=== PATIENT | male | born 1935 | race Caucasian/White ===

== ENCOUNTER 2019-04-17 16:58 | Inpatient (IN) ==
[2019-04-17 18:06] LABS: BASOPHILS # (AUTO) 0.1 X10^3/uL (0.0-0.1); BASOPHILS % (AUTO) 0.9 % (0.2-1.0); EOSINOPHILS # (AUTO) 0.3 x10^3/uL (0.0-0.2); EOSINOPHILS % (AUTO) 3.1 % (0.9-2.9); HEMATOCRIT 40.7 % (42.0-54.0); HEMOGLOBIN 13.4 g/dL (13.5-18.0); LYMPHOCYTES # (AUTO) 2.4 X10^3/uL (1.3-2.9); LYMPHOCYTES % (AUTO) 26.4 % (21.0-51.0); MEAN CORPUSCULAR HEMOGLOBIN 28.6 pg (27.0-34.0); MEAN CORPUSCULAR HGB CONC 33.1 g/dL (33.0-35.0); MEAN CORPUSCULAR VOLUME 86.5 fL (80.0-100.0); MEAN PLATELET VOLUME 9.5 fL (7.4-11.0); MONOCYTES % (AUTO) 10.8 % (0.0-13.0); NEUTROPHILS # (AUTO) 5.3 x10^3/uL (2.2-4.8); NEUTROPHILS % (AUTO) 58.8 % (42.0-75.0); PLATELET COUNT 248 X10^3/uL (150.0-450.0); RED CELL DISTRIBUTION WIDTH 15.3 % (11.6-16.5)
[2019-04-17 18:13] VITALS: BMI 25.9
[2019-04-17 18:14] LABS: ALANINE AMINOTRANSFERASE 33 Units/L (12-78); ALBUMIN 3.3 g/dL (3.4-5.0); ALKALINE PHOSPHATASE 125 Units/L (46-116); ASPARTATE AMINO TRANSFERASE 21 Units/L (15-37); BLOOD UREA NITROGEN 23 mg/dL (7-18); CALCIUM 9.7 mg/dL (8.5-10.1); CARBON DIOXIDE 27.6 mmol/L (21-32); CHLORIDE 106 mmol/L (98-107); COR CA(FOR HYPOALB) 10.3 mg/dL (8.5-10.1); COR NA(FOR HYPERGLY) 146 mmol/L (136-145); CREATININE 1.16 mg/dL (0.70-1.30); SODIUM 143 mmol/L (136-145); eGFR NON BLACK RACES > 60 (>60)
--- NOTE | 2019-04-17 18:14 | RAD ---
Chest, 1 view Indication: Pneumonia Comparison: None Findings: Cardiac silhouette size is unremarkable. There is left subclavian approach cardiac device and leads. Prior median sternotomy is noted. There is blunting of the left costophrenic sulcus. No dense infiltrates or pneumothorax. Impression: Blunting of the left costophrenic sulcus, compatible with pleural thickening or small effusion. Consider two-view chest. Reported By:
[2019-04-17] MEDS ORDERED: NS 1/2 1000 ML IV 1,000 ML ONE (18:44)
[2019-04-17] MEDS: LEVAQUIN PREMIX IV 500 MG 500 MG/100 ML BAG IV SCH (18:47)
[2019-04-17] MEDS: FORTAZ or TAZICEF VIAL INJ IVP SCH ×2 (18:47→23:30)
[2019-04-17] MEDS: VSL#3 PO SCH (18:47)
[2019-04-17] MEDS: NS 1/2 1000 ML IV 1,000 ML IV SCH (18:47)
--- NOTE | 2019-04-17 19:08 | DR.H&P ---
H&P - History & Physical for Day of: H&P Date: 04/17/19 - Chief Complaint Chief Complaint: C/C/C, FEVER - History of Present Illness History of Present Illness: IS A 84 YEAR OLD PATIENT OF OURS. HE PRESENTED TO THE HOSPITAL A DIRECT ADMISSION DUE TO COMPLAINTS OF PERSISTENT, PRODUCTIVE COUGH, CONGESTION, SHORTNESS OF BREATH, AND FEVER FOR THE PAST MONTH. HE REPORTS A PROGRESSIVE WORSENING OF SYMPTOMS OVER THE PAST WEEK DESPITE COMPLIANCE WITH INHALERS AND BREATHING TREATMENTS AT HOME. ON ARRIVAL TO THE HOSPITAL, VITALS WERE: 98.3-67-20-99%-157/75. LABS WERE OBTAINED. ABNORMAL LAB VALUES INCLUDE THE FOLLOWING: HGB 13.4, HCT 40.7, BUN 23, GLUCOSE 223, ALK PHOS 125, ALBUMIN 3.3, GLOBULIN 4.7. BLOOD AND SPUTUM CULTURES WERE OBTAINED. A CHEST XRAY WAS TAKEN AND REVEALED:. Blunting of the left costophrenic sulcus, compati ble with pleural thickening or small effusion. HE WAS STARTED ON 1/2NS AT 75ML/HR, LEVAQUIN 500MG IV DAILY, FORTAZ 1G IV Q8H, AND RESPIRATORY TREATMENTS FOR TREATMENT OF BRONCHOPNEUMONIA. OTHERWISE, WE PLAN TO FOLLOW UP WITH AM LABS AND CHEST XRAY AND CONTINUE TO MONITOR. - Past Medical History Past Medical History: COPD, Diabetes, GERD, Hypothyroidism - Past Surgical History Additional Surgical History: HERNIA REPAIR - Social History Does patient currently use any type of tobacco product: No (Quit in 1982) Have you used tobacco products in the last 12 months: No Type of Tobacco Use: None Does any household member use tobacco: No Alcohol Use: None Drug Use: None Prescription drug monitoring program results: PDMP reviewed and no concerns identified - Medications Home Medications: No Known Drug Allergies Allergy (Verified 04/17/19 17:22) CONTINUE taking the following medications albuterol sulfate [ProAir HFA] 2 puff INHALATION Q4-6H PRN 04/17/19 [History] amlodipine 5 mg PO BID 04/17/19 [History] apixaban [Eliquis] 5 mg PO BID 04/17/19 [History] carvedilol 3.125 mg PO BID 04/17/19 [History] famotidine 20 mg PO BID 04/17/19 [History] zkemyvomtht-[id number]-iurbfqqc [Trelegy Ellipta] 1 puff INHALATION DAILY 04/17/19 [History] furosemide 20 mg PO BID 04/17/19 [History] insulin glargine [Lantus Solostar U-100 Insulin] 35 units SUBCUT HS 04/17/19 [History] insulin lispro [Humalog KwikPen Insulin] See Rx Instructions .ROUTE .COMPLEX 04/17/19 [History] levothyroxine 50 mcg PO DAILY 04/17/19 [History] losartan 100 mg PO DAILY 04/17/19 [History] pregabalin [Lyrica] 50 mg PO BID 04/17/19 [History] roflumilast [Daliresp] 500 mg PO DAILY 04/17/19 [History] simvastatin 40 mg PO QHS 04/17/19 [History] - Review of Systems Constitutional: See HPI, Fever, Chills, Weakness Eyes: No Symptoms Reported ENT: No Symptoms Reported Respiratory: See HPI, Cough, Shortness of Breath, SOB with Excertion, Sputum, Wheezing Cardiovascular: No Symptoms Reported Gastrointestinal: No Symptoms Reported Genitourinary: No Symptoms Reported Musculoskeletal: No Symptoms Reported Skin: No Symptoms Reported Neurological: Weakness - Physical Exam Vital Signs: Temperature 98.3 F Pulse Rate [Left] 67 Pulse Rate 75 Respiratory Rate 20 Blood Pressure [Left Arm] 157/75 O2 Sat by Pulse Oximetry 96 Oriented: Normal Eyes: Normal Ear: Normal Nose: Normal Throat: Normal Respiratory: Wheezes Throughout Cardiovascular: Normal. negative: S3, S4, Murmur : Normal Auscultation: Bowel Sounds: Normal Palpation: Normal Tenderness: Normal Skin: Normal Musculoskeletal: Normal Psychiatric: Normal Mood Description: Calm Affect: Normal Speech Pattern: Clear - Assessment/Plan (1) Bronchopneumonia Status: Acute Plan: PNEUMONIA PROTOCOL WITH IV FORTAZ, IV LEVAQUIN, RESPIRATORY TREATMENTS, SUPPLEMENTAL OXYGEN, CONTINUE TO MONITOR - Allergies Allergies/Adverse Reactions: Allergies Allergy/AdvReac Type Severity Reaction Status Date / Time No Known Drug Allergies Allergy Verified 04/17/19 17:22
[2019-04-17] MEDS ORDERED: LASIX ONE (21:12)
[2019-04-17] MEDS: ROBITUSSIN DM PO SCH (21:18)
[2019-04-17] MEDS: LASIX PO SCH (21:19)
[2019-04-17] MEDS: HumuLIN R SUBCUT PRN (21:19)
[2019-04-17] MEDS: TUSSIONEX PENNKINETIC SUSP PO PRN (21:21)
[2019-04-17] MEDS: DUONEB 0.5 MG/3 MG NEB SCH (21:24)
[2019-04-18] MEDS: DUONEB 0.5 MG/3 MG NEB SCH ×6 (00:58→20:13)
[2019-04-18] MEDS: FORTAZ or TAZICEF VIAL INJ IVP SCH ×3 (05:25→21:40)
[2019-04-18 05:30] LABS: BASOPHILS # (AUTO) 0.1 X10^3/uL (0.0-0.1); EOSINOPHILS # (AUTO) 0.3 x10^3/uL (0.0-0.2); EOSINOPHILS % (AUTO) 3.7 % (0.9-2.9); HEMATOCRIT 36.8 % (42.0-54.0); HEMOGLOBIN 12.1 g/dL (13.5-18.0); LYMPHOCYTES # (AUTO) 2.1 X10^3/uL (1.3-2.9); MEAN CORPUSCULAR HEMOGLOBIN 28.3 pg (27.0-34.0); MEAN CORPUSCULAR HGB CONC 32.9 g/dL (33.0-35.0); MEAN CORPUSCULAR VOLUME 86.1 fL (80.0-100.0); MEAN PLATELET VOLUME 8.9 fL (7.4-11.0); MONOCYTES % (AUTO) 13.5 % (0.0-13.0); NEUTROPHILS # (AUTO) 3.7 x10^3/uL (2.2-4.8); NEUTROPHILS % (AUTO) 51.8 % (42.0-75.0); PLATELET COUNT 219 X10^3/uL (150.0-450.0); RED BLOOD COUNT 4.28 X10^6/uL (4.7-6.0); RED CELL DISTRIBUTION WIDTH 15.1 % (11.6-16.5); WHITE BLOOD COUNT 7.1 X10^3/uL (3.6-10.0)
[2019-04-18 05:36] LABS: ALANINE AMINOTRANSFERASE 26 Units/L (12-78); ALBUMIN 2.8 g/dL (3.4-5.0); ALKALINE PHOSPHATASE 108 Units/L (46-116); ASPARTATE AMINO TRANSFERASE 18 Units/L (15-37); BLOOD UREA NITROGEN 24 mg/dL (7-18); CALCIUM 9.3 mg/dL (8.5-10.1); CARBON DIOXIDE 30.5 mmol/L (21-32); CHLORIDE 109 mmol/L (98-107); COR CA(FOR HYPOALB) 10.3 mg/dL (8.5-10.1); COR NA(FOR HYPERGLY) 147 mmol/L (136-145); CREATININE 1.15 mg/dL (0.70-1.30); SODIUM 146 mmol/L (136-145); TOTAL PROTEIN 6.9 g/dL (6.4-8.2); eGFR NON BLACK RACES > 60 (>60)
[2019-04-18] MEDS: HumuLIN R SUBCUT PRN ×4 (05:48→22:22)
[2019-04-18] MEDS: LASIX PO SCH ×2 (06:01→17:39)
--- NOTE | 2019-04-18 06:22 | RAD ---
Chest, two views Indication: Bronchopneumonia Comparison: 04/17/2019 Findings: The left costophrenic angle is excluded from the cadop-sl-llli on the PA projection. The heart is normal in size. Prior median sternotomy and left-sided pacemaker noted. Lungs are hyperinflated with flattening of the hemidiaphragms and coarsened interstitial markings, suggestive for COPD. No obvious focal infiltrate or significant effusion is identified. No pneumothorax. Impression: Findings suggestive for COPD without acute cardiopulmonary abnormality. Reported By:
[2019-04-18] MEDS ORDERED: NS 1/2 1000 ML IV 1,000 ML ONE (08:00)
[2019-04-18] MEDS ORDERED: PHARMACY CONSULT - DOSE _____ XX SCH (08:00)
[2019-04-18] MEDS: NS 1/2 1000 ML IV 1,000 ML IV SCH (08:59)
[2019-04-18] MEDS: VSL#3 PO SCH (08:59)
[2019-04-18] MEDS: LEVAQUIN PREMIX IV 500 MG 500 MG/100 ML BAG IV SCH (08:59)
[2019-04-18] MEDS: ROBITUSSIN DM PO SCH ×4 (08:59→21:37)
[2019-04-18] MEDS ORDERED: PATIENT'S HOME MEDICATION (Fluticasone-Umeclidin-Vilanter [Fluticasone-Umeclidin-Vilanter] IN SCH (10:45)
[2019-04-18] MEDS ORDERED: LASIX PO SCH (11:00)
[2019-04-18] MEDS ORDERED: PROCALAMINE 3 % 1,000 ML IV SCH (11:00)
[2019-04-18] MEDS: COREG TAB 3.125 MG PO SCH ×2 (11:17→21:39)
[2019-04-18] MEDS: ELIQUIS PO SCH ×2 (11:17→21:39)
[2019-04-18] MEDS: DALIRESP PO SCH (11:17)
[2019-04-18] MEDS: COZAAR PO SCH (11:17)
[2019-04-18] MEDS: PEPCID TAB 20 MG PO SCH ×2 (11:18→21:39)
[2019-04-18] MEDS: SYNTHROID 50 mcg TAB PO SCH (11:18)
[2019-04-18] MEDS: LYRICA CAP 50 MG PO SCH ×2 (11:18→21:37)
[2019-04-18] MEDS: NORVASC TAB 5 MG PO SCH ×2 (11:18→21:38)
[2019-04-18] MEDS: ALBUMIN HUMAN 25%- 100 ML 100 ML IV SCH (11:26)
--- NOTE | 2019-04-18 20:09 | PCM.PROG ---
Progress Note - Progress Note for Day of Date of Exam: 04/18/19 - Subjective Subjective: WAS ADMITTED FOR TREATMENT OF BRONCHOPNEUMONIA. TODAY, HE IS ALERT AND ORIENTED, LYING IN BED ON MORNING ROUNDS. HE CONTINUES WITH COMPLAINTS OF A PERSISTENT COUGH, SHORTNESS OF BREATH, AND WEAKNESS. HE STATES THAT COUGH HAS BEEN PRODUCTIVE THROUGHOUT THE NIGHT. ON EXAMINATION, HEART IS REGULAR IN RATE AND RHYTHM. BILATERAL LUNGS ARE NOTED WITH SCATTERED WHEEZING. ABDOMEN IS ROUND, SOFT, AND NON-TENDER WITH NORMAL BOWEL SOUNDS NOTED IN ALL QUADRANTS. HIS VITALS THIS MORNING ARE: 97.7-75-20-99%-165/70. LABS WERE OBTAINED. ABNORMAL LAB VALUES INCLUDE THE FOLLOWING: RBC 4.28, HGB 12.1, HCT 36.8, SODIUM 146, CHLORIDE 109, BUN 24, GLUCOSE 156, ALBUMIN 2.8. BLOOD CULTURES AND SPUTUM CULTURES ARE PENDING. A CHEST XRAY WAS OBTAINED TODAY AND REVEALED: Findings suggestive for COPD without acute cardiopulmonary abnormality. HE IS CURRENTLY RECEIVING IV FLUIDS, IV ANTIBIOTICS, AND RESPIRATORY TREATMENTS. WE WILL CONTINUE WITH CURRENT PLAN OF CARE TODAY. WE WILL ADD PROCAL AND ALBUMIN 25% IV DAILY. WE WILL RESUME HIS LANTUS, BUT WILL INCREASE IT TO 50 UNITS SC HS. OTHERWISE, WE WILL FOLLOW UP WITH AM LABS AND CONTINUE TO [facility]. - Past Medical Family Social History Past Med/Fam/Surg Hx: No changes since H&P Allergies: Allergies No Known Drug Allergies Allergy (Verified 04/17/19 17:22) - Review of Systems ROS: No change since H&P - Vital Signs and I&O's Vital Signs: Temperature 98.5 F Pulse Rate [Left] 64 Pulse Rate 70 Respiratory Rate 20 Blood Pressure [Left Arm] 184/77 Blood Pressure 165/72 O2 Sat by Pulse Oximetry 97 Intake and Output: Intake & Output 04/16/19 04/17/19 04/18/19 04/19/19 11:59 11:59 11:59 11:59 Intake Total 1685 / 1685 1487 / 1487 Output Total 950 / 950 1200 / 1200 Balance 735 / 735 287 / 287 - Physical Exam Oriented: Normal Eyes: Normal Ear: Normal Nose: Normal Throat: Normal Respiratory: Generalized, Diminished, Wheezes Cardiovascular: Normal. negative: S3, S4, Murmur : Normal Auscultation: Bowel Sounds: Normal Palpation: Normal Tenderness: Normal Skin: Normal Musculoskeletal: Normal Psychiatric: Normal Mood Description: Calm Affect: Normal Speech Pattern: Clear, Appropriate - Laboratory and Diagnostics Result Diagrams: 04/18/19 04:39 04/18/19 04:39 Labs: 04/17/19 18:00 Sputum - Expectorated Sputum Sputum Culture - Preliminary 04/17/19 18:00 Sputum - Expectorated Sputum - Final Laboratory WBC 7.1 X10^3/uL (3.6-10.0) 04/18/19 04:39 RBC 4.28 X10^6/uL (4.7-6.0) L 04/18/19 04:39 Hgb 12.1 g/dL (13.5-18.0) L 04/18/19 04:39 Hct 36.8 % (42.0-54.0) L 04/18/19 04:39 MCV 86.1 fL (80.0-100.0) 04/18/19 04:39 MCH 28.3 pg (27.0-34.0) 04/18/19 04:39 MCHC 32.9 g/dL (33.0-35.0) L 04/18/19 04:39 RDW 15.1 % (11.6-16.5) 04/18/19 04:39 Plt Count 219 X10^3/uL (150.0-450.0) 04/18/19 04:39 MPV 8.9 fL (7.4-11.0) 04/18/19 04:39 Neut % (Auto) 51.8 % (42.0-75.0) 04/18/19 04:39 Lymph % (Auto) 30.0 % (21.0-51.0) 04/18/19 04:39 [place] % (Auto) 13.5 % (0.0-13.0) H 04/18/19 04:39 Eos % (Auto) 3.7 % (0.9-2.9) H 04/18/19 04:39 Baso % (Auto) 1.0 % (0.2-1.0) 04/18/19 04:39 Neut # (Auto) 3.7 x10^3/uL (2.2-4.8) 04/18/19 04:39 Lymph # (Auto) 2.1 X10^3/uL (1.3-2.9) 04/18/19 04:39 [place] # (Auto) 1.0 x10^3/uL (0.3-0.8) H 04/18/19 04:39 Eos # (Auto) 0.3 x10^3/uL (0.0-0.2) H 04/18/19 04:39 Baso # (Auto) 0.1 X10^3/uL (0.0-0.1) 04/18/19 04:39 Absolute Nucleated RBC 0.0 /100WBC 04/18/19 04:39 Sodium 146 mmol/L (136-145) H 04/18/19 04:39 Corrected Sodium 147 mmol/L (136-145) H 04/18/19 04:39 Potassium 4.6 mmol/L (3.5-5.1) 04/18/19 04:39 Chloride 109 mmol/L (98-107) H 04/18/19 04:39 Carbon Dioxide 30.5 mmol/L (21-32) 04/18/19 04:39 BUN 24 mg/dL (7-18) H 04/18/19 04:39 Creatinine 1.15 mg/dL (0.70-1.30) 04/18/19 04:39 Est GFR (MDRD) Af Amer > 60 (>60) 04/18/19 04:39 Est GFR (MDRD) Non-Af > 60 (>60) 04/18/19 04:39 Glucose 156 mg/dL (65-99) H 04/18/19 04:39 POC Glucose (mg/dL) 347 mg/dL (65-99) H 04/17/19 20:51 Calcium 9.3 mg/dL (8.5-10.1) 04/18/19 04:39 Corrected Calcium 10.3 mg/dL (8.5-10.1) H 04/18/19 04:39 Total Bilirubin 0.30 mg/dL (0.2-1.0) 04/18/19 04:39 AST 18 Units/L (15-37) 04/18/19 04:39 ALT 26 Units/L (12-78) 04/18/19 04:39 Alkaline Phosphatase 108 Units/L (46-116) 04/18/19 04:39 Total Protein 6.9 g/dL (6.4-8.2) 04/18/19 04:39 Albumin 2.8 g/dL (3.4-5.0) L 04/18/19 04:39 Globulin 4.1 g/dL (2.5-4.5) 04/18/19 04:39 Albumin/Globulin Ratio 0.7 Ratio (1.1-2.1) L 04/18/19 04:39 - Plan (1) Bronchopneumonia Status: Acute Plan: PNEUMONIA PROTOCOL WITH IV FORTAZ, IV LEVAQUIN, RESPIRATORY TREATMENTS, SUPPLEMENTAL OXYGEN, CONTINUE TO MONITOR (2) Diabetes Status: Acute Qualifiers: Diabetes mellitus type: type 2 Diabetes mellitus longterm insulin use: unspecified manager terminal insulin use status Diabetes mellitus complication status: without complication Qualified Code(s): E11.9 - Type 2 diabetes mellitus without complications Plan: LANTUS 50 UNITS SC HS, MONITOR OTBS, HUMULIN R SLIDING SCALE, CONTINUE TO MONITOR (3) Protein deficiency Status: Acute Plan: PROCAL IV, ALBUMIN 25% IV DAILY, CONTINUE TO MONITOR
[2019-04-18] MEDS: SNACK - Diabetic Appropriate PO SCH (20:30)
[2019-04-18] MEDS ORDERED: TYLENOL 325 MG TAB PO PRN (21:00)
[2019-04-18] MEDS: ZOCOR TAB 40 MG PO SCH (21:40)
[2019-04-18] MEDS: LANTUS SC SCH (21:45)
[2019-04-19] MEDS: TUSSIONEX PENNKINETIC SUSP PO PRN (01:15)
[2019-04-19] MEDS: DUONEB 0.5 MG/3 MG NEB SCH ×6 (01:34→21:58)
--- NOTE | 2019-04-19 06:12 | RAD ---
HISTORY: Shortness of breath Study: Chest AP portable Comparison: 04/18/2019 Findings: There is a pacemaker present obscuring a portion of the left lung apex. The patient is status post median sternotomy. The heart is within normal limits in size. The franc[place] are normal. The lungs are mildly hyperinflated but clear. No pleural effusions are identified. The bony thorax is unremarkable. IMPRESSION: Lungs mildly hyperinflated but clear, consistent with COPD in the appropriate clinical setting. Reported By:
[2019-04-19] MEDS: FORTAZ or TAZICEF VIAL INJ IVP SCH ×3 (06:14→21:40)
[2019-04-19 06:40] LABS: BASOPHILS # (AUTO) 0.1 X10^3/uL (0.0-0.1); BASOPHILS % (AUTO) 0.8 % (0.2-1.0); EOSINOPHILS # (AUTO) 0.3 x10^3/uL (0.0-0.2); EOSINOPHILS % (AUTO) 4.4 % (0.9-2.9); HEMATOCRIT 36.9 % (42.0-54.0); HEMOGLOBIN 12.2 g/dL (13.5-18.0); LYMPHOCYTES # (AUTO) 1.9 X10^3/uL (1.3-2.9); LYMPHOCYTES % (AUTO) 25.7 % (21.0-51.0); MEAN CORPUSCULAR HEMOGLOBIN 28.2 pg (27.0-34.0); MEAN CORPUSCULAR HGB CONC 32.9 g/dL (33.0-35.0); MEAN CORPUSCULAR VOLUME 85.5 fL (80.0-100.0); MEAN PLATELET VOLUME 8.8 fL (7.4-11.0); MONOCYTES # (AUTO) 0.9 x10^3/uL (0.3-0.8); MONOCYTES % (AUTO) 11.8 % (0.0-13.0); NEUTROPHILS # (AUTO) 4.2 x10^3/uL (2.2-4.8); NEUTROPHILS % (AUTO) 57.3 % (42.0-75.0); PLATELET COUNT 226 X10^3/uL (150.0-450.0); RED BLOOD COUNT 4.31 X10^6/uL (4.7-6.0); RED CELL DISTRIBUTION WIDTH 14.9 % (11.6-16.5); WHITE BLOOD COUNT 7.3 X10^3/uL (3.6-10.0)
[2019-04-19 06:59] LABS: ALANINE AMINOTRANSFERASE 27 Units/L (12-78); ALKALINE PHOSPHATASE 103 Units/L (46-116); ASPARTATE AMINO TRANSFERASE 18 Units/L (15-37); BLOOD UREA NITROGEN 19 mg/dL (7-18); CALCIUM 9.2 mg/dL (8.5-10.1); CARBON DIOXIDE 30.8 mmol/L (21-32); CHLORIDE 106 mmol/L (98-107); COR NA(FOR HYPERGLY) 143 mmol/L (136-145); CREATININE 1.02 mg/dL (0.70-1.30); SODIUM 143 mmol/L (136-145); eGFR NON BLACK RACES > 60 (>60)
[2019-04-19] MEDS: ALBUMIN HUMAN 25%- 100 ML 100 ML IV SCH (08:06)
[2019-04-19] MEDS: COREG TAB 3.125 MG PO SCH ×2 (08:07→21:40)
[2019-04-19] MEDS: ELIQUIS PO SCH ×2 (08:07→21:40)
[2019-04-19] MEDS: LEVAQUIN PREMIX IV 500 MG 500 MG/100 ML BAG IV SCH (08:07)
[2019-04-19] MEDS: ROBITUSSIN DM PO SCH ×4 (08:08→21:40)
[2019-04-19] MEDS: DALIRESP PO SCH (08:08)
[2019-04-19] MEDS: LYRICA CAP 50 MG PO SCH ×2 (08:08→21:40)
[2019-04-19] MEDS: COZAAR PO SCH (08:08)
[2019-04-19] MEDS: NORVASC TAB 5 MG PO SCH ×2 (08:08→21:40)
[2019-04-19] MEDS: SYNTHROID 50 mcg TAB PO SCH (08:08)
[2019-04-19] MEDS: PEPCID TAB 20 MG PO SCH ×2 (08:09→21:40)
[2019-04-19] MEDS: LASIX PO SCH ×2 (08:09→17:25)
[2019-04-19] MEDS: VSL#3 PO SCH (08:12)
[2019-04-19] MEDS: PULMICORT NEB TX 0.5 MG NEB SCH ×2 (10:47→21:58)
[2019-04-19 10:58] LABS: ABG BASE EXCESS 5.6 mmol/L (-2.0-2.0)
[2019-04-19 10:59] LABS: ABG ALLEN TEST POS; ABG HCO3 30.6 mmol/L (22-26)
[2019-04-19] MEDS ORDERED: NS 100 ML IV 100 ML ONE (11:02)
[2019-04-19] MEDS: MAGIC MOUTHWASH MT SCH ×4 (11:43→21:40)
[2019-04-19] MEDS: DIFLUCAN 200 MG IV PREMIX* 200 MG/100 ML BAG IV SCH (11:44)
--- NOTE | 2019-04-19 13:50 | CT ---
HISTORY: Shortness of breath, chronic cough Study: CT chest with contrast Comparison: Chest x-ray 04/19/2019, 04/18/2019 Technique: Multiple axial images of the chest were obtained from the thoracic inlet to the upper abdomen after the administration of IV contrast. CT chest with contrast Findings: Mild centrilobular and paraseptal emphysematous changes are observed with upper lobe predominance. Mild coarsening of the subpleural reticular lung markings is observed dependently within the lung bases. In the left lower lobe, superior segment just posterior to the left hilum lies a pulmonary nodule with irregular microlobulated and spicular borders, image 28 series 4. This nodule measures approximately 2 cm in maximum transverse diameter in the craniocaudal dimensions are at least 1.7 cm. This nodule lies near the terminal edge of the superior segment left lower lobe bronchus which is impacted by secretions. Separately in the left upper lobe and superior segment left lower lobe, there are coarsened reticular opacities with intervening ground-glass and find clustered tree-in-bud nodules associated with bronchial wall thickening, likely represent a localized source of inflammation related to small airways disease. There is a coalescent nodule identified separately within the left upper lobe on image 16 measuring 8 mm in maximum diameter. No consolidating pulmonary infiltrates are identified. There is a trace dependent left pleural effusion, not large enough to warrant thoracentesis attempt. The trachea is patent. There are no pathologically enlarged central mediastinal or hilar lymph nodes. The thoracic aorta maintains a normal caliber. There are no central filling defects of the main pulmonary artery, lobar, or proximal segmental branches. Coronary atherosclerosis is observed. Left ventricular hypertrophy is evident. A dual lead cardiac pacemaker is in place. Postoperative changes of median sternotomy are observed. Continuing into the upper abdomen, there is evidence of diffuse fatty infiltration of the pancreas. Lobular contours of the liver are demonstrated with accentuation of the caudate and left hepatic lobe which may indicate early changes of cirrhotic morphology. The adrenal glands are symmetric. 2.7 cm exophytic cyst of the upper pole of the left kidney is observed. There is a 2 cm cortically based cyst at the upper pole the right kidney. Cholelithiasis is observed dependently within the neck of the gallbladder with no secondary inflammatory changes. Scattered calcified granuloma of the liver parenchyma also noted. Review of bone windows demonstrates no aggressive lytic or blastic bony lesions or acute osseous abnormalities. IMPRESSION: In the superior segment of the left lower lobe, there is an irregular nodule with micro lobular and spiculated borders that is suspicious for potential malignant neoplasm. This is located at the terminal end of the superior segment left lower lobe bronchus. Coarse interstitial reticular opacities associated with bronchial wall thickening and clustered tree-in-bud type nodules are observed separately within the left upper lobe and superior segment left lower lobe. These may represent localized sites of inflammation related to bronchiolitis A separate coalescent 8 mm nodule in the left upper lobe also requires follow-up. A background of centrilobular and paraseptal emphysema is observed with upper lobe predominance Small left pleural effusion Cholelithiasis without secondary features of acute cholecystitis Early cirrhotic morphology of the liver suspected; old granulomatous disease of the liver also noted incidentally Bilateral renal cysts Other chronic and incidental findings as discussed above. Recommendation: Further workup of the suspicious left lower lobe pulmonary nodule is suggested. Dedicated PET scan may be performed as an outpatient, or consider bronchoscopy for histological analysis. At minimum, follow-up CT is needed within 3 months if the above recommendations are deferred. Individualized dose optimization techniques were utilized to reduce radiation dose through one or more of the following means: automated exposure control, adjustment of mA and/or KV according to patient size, or through use of iterative reconstruction technique. Reported By:
[2019-04-19] MEDS: HumuLIN R SUBCUT PRN ×3 (14:00→21:40)
[2019-04-19] MEDS: SNACK - Diabetic Appropriate PO SCH ×2 (21:40→22:53)
[2019-04-19] MEDS: LANTUS SC SCH (21:40)
[2019-04-19] MEDS: ZOCOR TAB 40 MG PO SCH (21:40)
[2019-04-20] MEDS: DUONEB 0.5 MG/3 MG NEB SCH ×4 (01:03→12:36)
[2019-04-20 05:22] LABS: BASOPHILS # (AUTO) 0.1 X10^3/uL (0.0-0.1); BASOPHILS % (AUTO) 0.9 % (0.2-1.0); EOSINOPHILS # (AUTO) 0.3 x10^3/uL (0.0-0.2); HEMATOCRIT 35.3 % (42.0-54.0); HEMOGLOBIN 11.8 g/dL (13.5-18.0); LYMPHOCYTES # (AUTO) 1.7 X10^3/uL (1.3-2.9); LYMPHOCYTES % (AUTO) 19.7 % (21.0-51.0); MEAN CORPUSCULAR HEMOGLOBIN 28.9 pg (27.0-34.0); MEAN CORPUSCULAR HGB CONC 33.5 g/dL (33.0-35.0); MEAN CORPUSCULAR VOLUME 86.2 fL (80.0-100.0); MEAN PLATELET VOLUME 9.3 fL (7.4-11.0); MONOCYTES % (AUTO) 11.7 % (0.0-13.0); NEUTROPHILS # (AUTO) 5.4 x10^3/uL (2.2-4.8); NEUTROPHILS % (AUTO) 63.7 % (42.0-75.0); PLATELET COUNT 218 X10^3/uL (150.0-450.0); RED BLOOD COUNT 4.09 X10^6/uL (4.7-6.0); RED CELL DISTRIBUTION WIDTH 15.5 % (11.6-16.5); WHITE BLOOD COUNT 8.5 X10^3/uL (3.6-10.0)
--- NOTE | 2019-04-20 05:37 | RAD ---
Chest, one view Indication: Shortness of breath Comparison: CT chest 04/19/2019 Findings: The heart is normal in size. Prior median sternotomy and left-sided pacemaker noted. Lungs are hyperinflated with coarsened interstitial markings, compatible with COPD. There is stable blunting of the left costophrenic angle, compatible with a trace effusion. The patient's known spiculated nodule within the superior segment of the left lower lobe is grossly unchanged given differences in technique. No acute alveolar infiltrate is identified. No pneumothorax. Impression: Stable trace left pleural effusion COPD with grossly unchanged spiculated left lower lobe nodule, which is again suspicious for bronchopulmonary carcinoma. Reported By:
[2019-04-20 05:54] LABS: ALANINE AMINOTRANSFERASE 25 Units/L (12-78); ALBUMIN 3.1 g/dL (3.4-5.0); ALKALINE PHOSPHATASE 106 Units/L (46-116); ASPARTATE AMINO TRANSFERASE 18 Units/L (15-37); BLOOD UREA NITROGEN 20 mg/dL (7-18); CALCIUM 8.8 mg/dL (8.5-10.1); CARBON DIOXIDE 29.3 mmol/L (21-32); CHLORIDE 105 mmol/L (98-107); COR CA(FOR HYPOALB) 9.5 mg/dL (8.5-10.1); CREATININE 0.98 mg/dL (0.70-1.30); SODIUM 141 mmol/L (136-145); eGFR NON BLACK RACES > 60 (>60)
[2019-04-20] MEDS: FORTAZ or TAZICEF VIAL INJ IVP SCH (06:20)
[2019-04-20] MEDS: DIFLUCAN 200 MG IV PREMIX* 200 MG/100 ML BAG IV SCH (08:20)
[2019-04-20] MEDS: VSL#3 PO SCH (08:20)
[2019-04-20] MEDS: LYRICA CAP 50 MG PO SCH (08:21)
[2019-04-20] MEDS: LASIX PO SCH (08:21)
[2019-04-20] MEDS: COREG TAB 3.125 MG PO SCH (08:21)
[2019-04-20] MEDS: ALBUMIN HUMAN 25%- 100 ML 100 ML IV SCH (08:22)
[2019-04-20] MEDS: COZAAR PO SCH (08:23)
[2019-04-20] MEDS: SYNTHROID 50 mcg TAB PO SCH (08:23)
[2019-04-20] MEDS: LEVAQUIN PREMIX IV 500 MG 500 MG/100 ML BAG IV SCH (08:23)
[2019-04-20] MEDS: DALIRESP PO SCH (08:23)
[2019-04-20] MEDS: ROBITUSSIN DM PO SCH (08:23)
[2019-04-20] MEDS: NORVASC TAB 5 MG PO SCH (08:23)
[2019-04-20] MEDS: PEPCID TAB 20 MG PO SCH (08:23)
[2019-04-20] MEDS: ELIQUIS PO SCH (08:24)
--- NOTE | 2019-04-20 08:25 | PCM.PROG ---
Progress Note - Progress Note for Day of Date of Exam: 04/19/19 - Subjective Subjective: WAS ADMITTED FOR TREATMENT OF BRONCHOPNEUMONIA. TODAY, HE IS ALERT AND ORIENTED, LYING IN BED ON MORNING ROUNDS. HE CONTINUES WITH COMPLAINTS OF A PERSISTENT COUGH, SHORTNESS OF BREATH, AND WEAKNESS. HE STATES THAT SHORTNESS OF BREATH HAS INCREASED SINCE YESTERDAY. ON EXAMINATION, HEART IS REGULAR IN RATE AND RHYTHM. BILATERAL LUNGS ARE NOTED WITH SCATTERED WHEEZING. ABDOMEN IS ROUND, SOFT, AND NON-TENDER WITH NORMAL BOWEL SOUNDS NOTED IN ALL QUADRANTS. HIS VITALS THIS MORNING ARE: 99.3-76-20-93%-167/75. LABS WERE OBTAINED. ABNORMAL LAB VALUES INCLUDE THE FOLLOWING: RBC 4.31, JGB 12.2, HCT 36.9, BUN 19, GLUCOSE 117, ALBUMIN 3.0. BLOOD CULTURES AND SPUTUM CULTURES ARE PENDING. A CHEST XRAY WAS OBTAINED TODAY AND REVEALED: Lungs mildly hyperinflated but clear, consistent with COPD in the appropriate clinical setting. HE IS CURRENTLY RECEIVING IV FLUIDS, IV ANTIBIOTICS, AND RESPIRATORY TREATMENTS. WE WILL CONTINUE WITH CURRENT PLAN OF CARE TODAY AND ADD PULMICORT, DIFLUCAN, AND MAGIC MOUTHWASH. WE WILL OBTAIN AN ABG AND A CHEST CT WITH CONTRAST. OTHERWISE, WE WILL FOLLOW UP WITH AM LABS AND CONTINUE TO [facility]. - Past Medical Family Social History Past Med/Fam/Surg Hx: No changes since H&P Allergies: Allergies No Known Drug Allergies Allergy (Verified 04/17/19 17:22) - Review of Systems ROS: No change since H&P - Vital Signs and I&O's Vital Signs: Temperature 99.6 F Pulse Rate [Left] 73 Pulse Rate 73 Respiratory Rate 18 Blood Pressure [Left Arm] 168/75 Blood Pressure 165/72 O2 Sat by Pulse Oximetry 96 Intake and Output: Intake & Output 04/17/19 04/18/19 04/19/19 04/20/19 11:59 11:59 11:59 11:59 Intake Total 1685 / 1685 3034 / 3034 1286 / 1286 Output Total 950 / 950 3450 / 3450 1425 / 1425 Balance 735 / 735 -416 / -416 -139 / -139 - Physical Exam Oriented: Normal Eyes: Normal Ear: Normal Nose: Normal Throat: Normal Respiratory: Generalized, Diminished, Wheezes Cardiovascular: Normal. negative: S3, S4, Murmur : Normal Auscultation: Bowel Sounds: Normal Palpation: Normal Tenderness: Normal Skin: Normal Musculoskeletal: Normal Psychiatric: Normal Mood Description: Calm Affect: Normal Speech Pattern: Clear, Appropriate - Laboratory and Diagnostics Result Diagrams: 04/20/19 04:53 04/20/19 04:53 Labs: 04/17/19 17:49 Blood Blood Culture - Preliminary 04/17/19 17:47 Blood Blood Culture - Preliminary 04/17/19 18:00 Sputum - Expectorated Sputum Sputum Culture - Preliminary 04/17/19 18:00 Sputum - Expectorated Sputum - Final Laboratory WBC 8.5 X10^3/uL (3.6-10.0) 04/20/19 04:53 RBC 4.09 X10^6/uL (4.7-6.0) L 04/20/19 04:53 Hgb 11.8 g/dL (13.5-18.0) L 04/20/19 04:53 Hct 35.3 % (42.0-54.0) L 04/20/19 04:53 MCV 86.2 fL (80.0-100.0) 04/20/19 04:53 MCH 28.9 pg (27.0-34.0) 04/20/19 04:53 MCHC 33.5 g/dL (33.0-35.0) 04/20/19 04:53 RDW 15.5 % (11.6-16.5) 04/20/19 04:53 Plt Count 218 X10^3/uL (150.0-450.0) 04/20/19 04:53 MPV 9.3 fL (7.4-11.0) 04/20/19 04:53 Neut % (Auto) 63.7 % (42.0-75.0) 04/20/19 04:53 Lymph % (Auto) 19.7 % (21.0-51.0) L 04/20/19 04:53 [place] % (Auto) 11.7 % (0.0-13.0) 04/20/19 04:53 Eos % (Auto) 4.0 % (0.9-2.9) H 04/20/19 04:53 Baso % (Auto) 0.9 % (0.2-1.0) 04/20/19 04:53 Neut # (Auto) 5.4 x10^3/uL (2.2-4.8) H 04/20/19 04:53 Lymph # (Auto) 1.7 X10^3/uL (1.3-2.9) 04/20/19 04:53 [place] # (Auto) 1.0 x10^3/uL (0.3-0.8) H 04/20/19 04:53 Eos # (Auto) 0.3 x10^3/uL (0.0-0.2) H 04/20/19 04:53 Baso # (Auto) 0.1 X10^3/uL (0.0-0.1) 04/20/19 04:53 Absolute Nucleated RBC 0.0 /100WBC 04/20/19 04:53 Sample Site Rr 04/19/19 10:49 ABG pH 7.440 (7.35-7.45) 04/19/19 10:49 ABG pCO2 45.0 mmHg (35.0-45.0) 04/19/19 10:49 ABG pO2 80.0 mmHg (80.0-100.0) 04/19/19 10:49 ABG HCO3 30.6 mmol/L (22-26) H* 04/19/19 10:49 ABG O2 Saturation 96.0 % (90-100) 04/19/19 10:49 ABG Base Excess 5.6 mmol/L (-2.0-2.0) H 04/19/19 10:49 Reji Test Pos 04/19/19 10:49 A-a Gradient 13.0 mmHg 04/19/19 10:49 FiO2 21.0 04/19/19 10:49 Blood Gas Comments Maylin well cb 04/19/19 10:49 Sodium 141 mmol/L (136-145) 04/20/19 04:53 Corrected Sodium TNP 04/20/19 04:53 Potassium 4.0 mmol/L (3.5-5.1) 04/20/19 04:53 Chloride 105 mmol/L (98-107) 04/20/19 04:53 Carbon Dioxide 29.3 mmol/L (21-32) 04/20/19 04:53 BUN 20 mg/dL (7-18) H 04/20/19 04:53 Creatinine 0.98 mg/dL (0.70-1.30) 04/20/19 04:53 Est GFR (MDRD) Af Amer > 60 (>60) 04/20/19 04:53 Est GFR (MDRD) Non-Af > 60 (>60) 04/20/19 04:53 Glucose 95 mg/dL (65-99) 04/20/19 04:53 POC Glucose (mg/dL) 347 mg/dL (65-99) H 04/17/19 20:51 Calcium 8.8 mg/dL (8.5-10.1) 04/20/19 04:53 Corrected Calcium 9.5 mg/dL (8.5-10.1) 04/20/19 04:53 Total Bilirubin 0.40 mg/dL (0.2-1.0) 04/20/19 04:53 AST 18 Units/L (15-37) 04/20/19 04:53 ALT 25 Units/L (12-78) 04/20/19 04:53 Alkaline Phosphatase 106 Units/L (46-116) 04/20/19 04:53 Total Protein 7.0 g/dL (6.4-8.2) 04/20/19 04:53 Albumin 3.1 g/dL (3.4-5.0) L 04/20/19 04:53 Globulin 3.9 g/dL (2.5-4.5) 04/20/19 04:53 Albumin/Globulin Ratio 0.8 Ratio (1.1-2.1) L 04/20/19 04:53 - Plan (1) Bronchopneumonia Status: Acute Plan: PNEUMONIA PROTOCOL WITH IV FORTAZ, IV LEVAQUIN, RESPIRATORY TREATMENTS, SUPPLEMENTAL OXYGEN, OBTAIN ABG, OBTAIN CHEST CT, CONTINUE TO MONITOR (2) Diabetes Status: Acute Qualifiers: Diabetes mellitus type: type 2 Diabetes mellitus care home insulin use: unspecified care home insulin use status Diabetes mellitus complication status: without complication Qualified Code(s): E11.9 - Type 2 diabetes mellitus without complications Plan: LANTUS 50 UNITS SC HS, MONITOR OTBS, HUMULIN R SLIDING SCALE, CONTINUE TO MONITOR (3) Protein deficiency Status: Acute Plan: PROCAL IV, ALBUMIN 25% IV DAILY, CONTINUE TO MONITOR
[2019-04-20] MEDS: MAGIC MOUTHWASH MT SCH (08:27)
[2019-04-20 08:34] VITALS: BP 164/76
[2019-04-20] MEDS: PULMICORT NEB TX 0.5 MG NEB SCH (08:58)
== END 2019-04-20 11:45 | disposition home or self-care (01) | DRG 179 ==
LOC: ICU → EDBD 16:58 → OBSVTOIN 04-18 09:00
PROVIDERS: ADMIT Internal Medicine; ATTEND Internal Medicine
DX: E11.65 Type 2 diabetes mellitus with hyperglycemia; E03.8 Other specified hypothyroidism; J15.8 Pneumonia due to other specified bacteria; J15.6 Pneumonia due to other Gram-negative bacteria; K21.9 Gastro-esophageal reflux disease without esophagitis; Z95.0 Presence of cardiac pacemaker; R09.02 Hypoxemia; J44.9 Chronic obstructive pulmonary disease, unspecified
CPT/HCPCS: 36415; 36600; 71010; 71020; 71045; 71046; 71260; 80053; 82803; 85025; 87040; 87070; 87077; 87186; 87205; 94640; A4222; B5200; P9047; J0713; J1450; J1815; J1956; J3490; J7050; J7620; J7626